=== PATIENT | male | born 1960 ===

== ENCOUNTER 2018-02-18 06:09 | Inpatient (IN) | payer OTHER ==
[2018-02-11 13:50] VITALS: BMI 23.6
[2018-02-18] MEDS ORDERED: Midazolam 2 MG/2 ML VIAL ONE ×2 (07:28→11:51)
[2018-02-18] MEDS ORDERED: Propofol 10 mg/ml Inj (20 ML) ONE ×2 (07:29→13:38)
[2018-02-18] MEDS ORDERED: Succinylcholine Chloride 20 mg/ml Syr (5 ml) IV ONE (07:31)
[2018-02-18] MEDS ORDERED: Rocuronium 10 mg/ml (5 ml) ONE (07:31)
[2018-02-18] MEDS ORDERED: cefOXitin IV 2 gm in Dextrose 2 GM/50 ML BAG IVPB ONE (07:40)
[2018-02-18] MEDS ORDERED: cefOXitin IV 1 gm in Dextrose 0 GM/0 ML BAG IVPB ONE (07:40)
[2018-02-18] MEDS ORDERED: Bupivacaine 0.25% 20 ML INJ IJ ONE (07:41)
[2018-02-18] MEDS ORDERED: Lidocaine/Epinephrine 1% 1:100000 10 ML IJ ONE (07:41)
[2018-02-18] MEDS ORDERED: HYDROmorphone 0.5 mg/0.5 ml ISec IVP PRN (13:31)
[2018-02-18] MEDS ORDERED: Lactated Ringer's 1,000 ML IV ONE ×2 (15:00)
[2018-02-18] MEDS: ceFAZolin IV 1 gm in Dextrose 1 GM/50 ML BAG IVPB SCH ×2 (16:00→23:35)
[2018-02-18] MEDS ORDERED: Tobramycin/Dexamethasone OPHT OINT OD ONE (16:15)
[2018-02-18] MEDS ORDERED: Lactated Ringer's 1,000 ML IV SCH (16:15)
[2018-02-18] MEDS: HYDROmorphone 0.5 mg/0.5 ml ISec IVP PRN ×2 (17:46→21:45)
[2018-02-18] MEDS: Lactated Ringer's 1,000 ML IV SCH (18:28)
[2018-02-19] MEDS: Lactated Ringer's 1,000 ML IV SCH ×2 (00:28→09:28)
--- NOTE | 2018-02-19 03:29 | OP ---
PROCEDURE DATE: 02/18/2018 PREOPERATIVE DIAGNOSIS: Paraesophageal hiatal hernia. POSTOPERATIVE DIAGNOSIS: Paraesophageal hiatal hernia. PROCEDURES DONE: 1. Robotic paraesophageal hiatal hernia repair with mesh. 2. Robotic fundoplication. 3. Intraoperative esophagogastroduodenoscopy. SURGEON: Manpreet Hernandez MD ASSISTANTS: Troy Pearson MD and JUVENCIO Stubbs. TYPE OF ANESTHESIA: General endotracheal tube anesthesia. ESTIMATED BLOOD LOSS: Around 50 mL. DRAINS: None. PATHOLOGY: Hernia was taken, content was sent for pathology. COMPLICATIONS: None. INTRAOPERATIVE FINDINGS: The patient had large paraesophageal hernia containing half of the stomach and omentum. The other intraoperative findings; the EGD that was done after fundoplication was suggestive of intragastric fold nearby GE junction. DESCRIPTION OF PROCEDURE: On intraoperative steps, this is a 57-year-old male, who was diagnosed with paraesophageal hernia and the patient was consented for the robotic paraesophageal hernia repair with a mesh, brought to the OR, placed supine on operating table. After induction of the anesthesia, the abdomen was prepped and draped in the usual sterile fashion. The left upper quadrant incision was made after incising the skin and subcutaneous tissue. Using the Visiport technique, peritoneal cavity was entered and pneumo was created. Another three 8-mm ports were placed in the upper abdomen. The robot was brought in. Camera arm, as well as arm 1 and arm 2 were ducked and using the fourth arm of the robot, the liver was retracted. Now, the stomach and omentum were reduced back into peritoneal cavity. The short gastric vessels were dissected initially to release fundus of the stomach from the mediastinum and now the hernia sac was dissected starting from the right side and the dissection was carried down up to the left side and the hernia sac was completely reduced. Now, the GE junction was dissected first on the left side, then on the right side up to the spine level and the posterior vagus nerve was kept intact and it was lifted up and the Ivory drain was placed and both the crural dissections were done posteriorly to prevent all the attachments of the short gastric vessels and now the mediastinal dissection was done to release all the attachments of the esophagus to the pleura up to the aorta and to the surrounding loose areolar tissue. First anterior, lateral, and posterior dissection was done with blunt and sharp dissection and approximately 4 cm of intra-abdominal esophageal length was created and now the crural repair was done posteriorly for the three stitches were placed of 0-Prolene with the pledgets of Phasix ST mesh and then one anterior suture was placed and a 56-Mongolian bougie was and bougie was taken in and out without any problems and now the EGD was also done one time just to confirm there is no injury to the esophagus, and after that the fundoplication was done. The fundus of the stomach was brought posteriorly and it was wrapped around and the anterior stitch was taken. The wrap was loose and it was able to introduce at least 2 fingerbreadths and one stitch was taken to the loose areolar tissue of the esophagus. After proper fundoplication, another EGD was done to see the intragastric nipple as well as the valve and after confirmation of an intra-gastric valve, the stomach was deflated and the Phasix ST mesh was placed and the mesh was sutured to the crura and after proper replacement of the mesh, the 19-Mongolian Levar drain was placed. The specimen was taken out and it was sent off the table for the pathology. All the ports were taken out under vision. Pneumo was deflated. The robot was undocked before taking the port out and all port sites were closed in 2 layers, the subcu with 2-0 Vicryl, skin with a 4-0 Monocryl, and dry sterile dressing was applied. The patient tolerated the procedure well. Counts of instruments and gauze were correct. There were no apparent complications. The patient was extubated in OR and sent to the postanesthesia care unit in stable condition. Manpreet Hernandez MD
[2018-02-19] MEDS: HYDROmorphone 0.5 mg/0.5 ml ISec IVP PRN ×3 (04:42→13:55)
[2018-02-19] MEDS ORDERED: HYDROmorphone 0.5 mg/0.5 ml ISec IVP STA (07:33)
[2018-02-19 07:43] LABS: HEMOGLOBIN 14.1 g/dL (12.0-18.0); MEAN CELL VOLUME 86.5 fL (80.0-94.0); MEAN CORPUSCULAR HEMOGLOBIN 29.2 pg (27.0-31.0); MEAN CORPUSCULAR HGB CONC 33.8 g/dL (33.0-37.0); MEAN PLATELET VOLUME 8.6 fL (7.2-11.7); RBC 4.82 Mil/uL (4.40-5.90); RED CELL DISTRIBUTION WIDTH 14.7 % (11.5-14.5); WHITE BLOOD COUNT 16.7 K/uL (4.8-10.8)
[2018-02-19 08:09] LABS: BLOOD UREA NITROGEN 10 mg/dL (9-20); CALCIUM 8.7 mg/dl (8.6-10.4); GFR AFRICAN-AMERICAN > 60; GFR NON-AFRICAN AMERICAN > 60
[2018-02-19] MEDS: ceFAZolin IV 1 gm in Dextrose 1 GM/50 ML BAG IVPB SCH ×2 (08:42→16:59)
[2018-02-19] MEDS: Magnesium Sulfate 1 gm in D5W 1 GM/100 ML BAG IVPB SCH ×4 (08:56→12:55)
[2018-02-19] MEDS ORDERED: Potassium Phosphate 20 MMOLE in Sodium Chloride 0.9% 250 ML IV ONE (10:00)
[2018-02-19] MEDS ORDERED: Pneumococcal 23-Valent Vaccine IM ONE (10:00)
--- NOTE | 2018-02-19 10:41 | CP.PCM.PN ---
<AndreakiahMorgan garibay - Last Filed: 02/19/18 10:36> Subjective - Date & Time of Evaluation Date of Evaluation: 02/19/18 Time of Evaluation: 10:36 - Subjective Subjective: Surgery: Dr. Hernandez Pt seen and examined. No acute events overnight. Pain is controlled. No N/V. Objective - Vital Signs/Intake and Output Vital Signs (last 24 hours): Temp Pulse Resp BP Pulse Ox 99.3 F 90 20 133/85 96 02/19/18 09:00 02/19/18 08:54 02/19/18 07:00 02/19/18 07:00 02/19/18 07:00 Intake and Output: 02/19/18 02/19/18 06:59 18:59 Intake Total 1600 Output Total 405 Balance 1195 - Medications Medications: Current Medications Heparin Sodium (Porcine) (Heparin) 5,000 units SC Q8 [facility] Last Admin: 02/19/18 09:34 Dose: 5,000 units Hydromorphone HCl (Dilaudid) 0.5 mg IVP Q3H PRN PRN Reason: Pain, severe (8-10) Cefazolin Sodium/Dextrose (Ancef Iv 1 Gm Duplex) 1 gm in 50 mls @ 100 mls/hr IVPB Q8H [facility] PRN Reason: Protocol Last Admin: 02/19/18 08:42 Dose: 100 mls/hr Potassium Phosphate 20 mmole/ (Sodium Chloride) 256.6667 mls @ 63 mls/hr IV ONCE ONE Stop: 02/19/18 14:04 Last Admin: 02/19/18 09:35 Dose: 63 mls/hr Potassium Chloride/Dextrose (Potassium Chl 20 Meq In D5w) 1,000 mls @ 100 mls/ hr IV .Q10H [facility] Metoclopramide HCl (Reglan) 10 mg IVP Q8H [facility] Last Admin: 02/19/18 05:41 Dose: 10 mg Ondansetron HCl (Zofran Inj) 4 mg IVP Q6H [facility] Last Admin: 02/19/18 07:51 Dose: 4 mg Pantoprazole Sodium (Protonix Inj) 40 mg IVP DAILY [facility] Last Admin: 02/19/18 09:29 Dose: 40 mg - Labs Labs: 02/19/18 07:37 02/19/18 07:37 - Constitutional Appears: Non-toxic, No Acute Distress - Head Exam Head Exam: ATRAUMATIC, NORMOCEPHALIC - Eye Exam Eye Exam: EOMI. absent: Scleral icterus - ENT Exam ENT Exam: Mucous Membranes Moist - Neck Exam Neck Exam: Full ROM - Respiratory Exam Respiratory Exam: NORMAL BREATHING PATTERN. absent: Accessory Muscle Use, Respiratory Distress - GI/Abdominal Exam GI & Abdominal Exam: Soft, Tenderness (mono-incisional ). absent: Distended, Firm, Guarding, Rigid, Rebound - Extremities Exam Extremities Exam: absent: Calf Tenderness, Pedal Edema - Neurological Exam Neurological Exam: Alert, Awake, Oriented x3 Assessment and Plan - Assessment and Plan (Free Text) Assessment: 57M w. hiatal hernia, s/p kaylene fundoplication, POD#1 -UGIS this AM, follow up results -keep NPO -c/w IVF and pain meds -Leukocytosis, will trend for now -GI/DVT ppx -will d/w attending Emelynitis PGY4 <Manpreet Hernandez B - Last Filed: 02/22/18 19:31> Objective - Vital Signs/Intake and Output Vital Signs (last 24 hours): Temp Pulse Resp BP Pulse Ox 98.7 F 94 H 20 131/86 95 02/22/18 15:00 02/22/18 15:00 02/22/18 15:00 02/22/18 15:00 02/22/18 15:00 Intake and Output: 02/22/18 02/23/18 18:59 06:59 Intake Total 650 Output Total 1380 Balance -730 - Medications Medications: Current Medications Acetaminophen (Tylenol 325mg Tab) 650 mg PO Q6 PRN PRN Reason: Fever >100.4 F Last Admin: 02/20/18 21:40 Dose: 650 mg Enoxaparin Sodium (Lovenox) 40 mg SC DAILY [facility] Last Admin: 02/22/18 09:48 Dose: 40 mg Piperacillin Sod/Tazobactam Sod (Zosyn 3.375 Gm Iv Premix) 3.375 gm in 50 mls @ 100 mls/hr IVPB Q8H [facility] PRN Reason: Protocol Last Admin: 02/22/18 13:38 Dose: 100 mls/hr Potassium Chloride/Dextrose (Potassium Chl 20 Meq In D5w) 1,000 mls @ 75 mls/ hr IV .[id number] [facility] Last Admin: 02/22/18 17:04 Dose: Not Given Metoclopramide HCl (Reglan) 10 mg IVP Q8H [facility] Last Admin: 02/22/18 13:38 Dose: 10 mg Morphine Sulfate (Morphine Oral Soln) 20 mg PO Q4 PRN PRN Reason: Pain, moderate (4-7) Last Admin: 02/21/18 21:27 Dose: 20 mg Ondansetron HCl (Zofran Inj) 4 mg IVP Q6H [facility] Last Admin: 02/22/18 14:50 Dose: Not Given Pantoprazole Sodium (Protonix Inj) 40 mg IVP DAILY [facility] Last Admin: 02/22/18 09:48 Dose: 40 mg Psyllium Hydrophilic Mucilloid (Hydrocil Instant) 1 pkt PO BID [facility] Last Admin: 02/22/18 17:03 Dose: Not Given Simethicone (Mylicon Chew Tab) 80 mg PO Q6H PRN PRN Reason: GI distress - Labs Labs: 02/22/18 09:30 02/22/18 09:30 Attending/Attestation - Attestation I have personally seen and examined this patient.: Yes I have fully participated in the care of the patient.: Yes I have reviewed all pertinent clinical information, including history, physical exam and plan: Yes Notes (Text): Pt was seen and examined at bedside Agree with above note and assessment Pt has atelectasis Incentive spirometry Upper GI series IV antibiotics Plan d.w pt in detail Risk and benefit explained in detail.
[2018-02-19] MEDS ORDERED: Iohexol 240 200 ML ONE (11:26)
[2018-02-19] MEDS ORDERED: Potassium Ch 20mEq in D5W 1,000 ML IV SCH (14:00)
[2018-02-19] MEDS: Potassium Ch 20mEq in D5W 1,000 ML IV SCH (14:53)
[2018-02-19] MEDS ORDERED: Morphine 10 mg/5 ml Oral Soln PO PRN (17:48)
[2018-02-20] MEDS: Potassium Ch 20mEq in D5W 1,000 ML IV SCH (06:24)
[2018-02-20] MEDS ORDERED: Simethicone 80 mg Chewtab PO PRN (07:28)
--- NOTE | 2018-02-20 07:40 | CP.PCM.PN ---
<Trent Singletary - Last Filed: 02/20/18 21:41> Subjective - Date & Time of Evaluation Date of Evaluation: 02/20/18 Time of Evaluation: 07:30 - Subjective Subjective: Patient seen and examined. No acute events over night. Patient reports abdominal incision site pain. Reports belching. Tmax 100.5 Objective - Vital Signs/Intake and Output Vital Signs (last 24 hours): Temp Pulse Resp BP Pulse Ox 99.5 F 118 H 20 136/85 93 L 02/19/18 23:18 02/19/18 23:18 02/19/18 23:18 02/19/18 23:18 02/19/18 23:18 Intake and Output: 02/20/18 02/20/18 06:59 18:59 Intake Total 800 Output Total 1610 Balance -810 - Medications Medications: Current Medications Enoxaparin Sodium (Lovenox) 40 mg SC DAILY [facility] Potassium Chloride/Dextrose (Potassium Chl 20 Meq In D5w) 1,000 mls @ 60 mls/ hr IV .[id number] [facility] Last Admin: 02/20/18 06:24 Dose: 60 mls/hr Ketorolac Tromethamine (Toradol) 30 mg IVP Q6 [facility] Stop: 02/20/18 12:01 Last Admin: 02/20/18 05:34 Dose: 30 mg Metoclopramide HCl (Reglan) 10 mg IVP Q8H [facility] Last Admin: 02/20/18 05:35 Dose: 10 mg Morphine Sulfate (Morphine Oral Soln) 20 mg PO Q4 PRN PRN Reason: Pain, moderate (4-7) Ondansetron HCl (Zofran Inj) 4 mg IVP Q6H [facility] Last Admin: 02/20/18 03:31 Dose: 4 mg Pantoprazole Sodium (Protonix Inj) 40 mg IVP DAILY [facility] Last Admin: 02/19/18 09:29 Dose: 40 mg Simethicone (Mylicon Chew Tab) 80 mg PO Q6H PRN PRN Reason: GI distress - Labs Labs: 02/19/18 07:37 02/19/18 07:37 - Constitutional Appears: No Acute Distress - Eye Exam Eye Exam: Normal appearance - ENT Exam ENT Exam: Mucous Membranes Moist - Respiratory Exam Respiratory Exam: NORMAL BREATHING PATTERN - Cardiovascular Exam Cardiovascular Exam: +S1, +S2 - GI/Abdominal Exam GI & Abdominal Exam: Tenderness. absent: Distended, Firm, Guarding, Rigid - Neurological Exam Neurological Exam: Alert, Awake, Oriented x3 - Psychiatric Exam Psychiatric exam: Normal Mood - Skin Skin Exam: Dry, Intact, Warm Assessment and Plan - Assessment and Plan (Free Text) Assessment: 57M w. hiatal hernia, s/p kaylene fundoplication, POD#2 Plan: -UGIS reviewed wit attending, ok to start CLD -Serial abd exams -Monitor bowel function -Monitor vitals -c/w anti-emetics/analgesics -Leukocytosis, will continue to trend -GI/DVT ppx -Further recs per Dr. Mary Severino PGY3 <Manpreet Hernandez - Last Filed: 02/22/18 19:40> Objective - Vital Signs/Intake and Output Vital Signs (last 24 hours): Temp Pulse Resp BP Pulse Ox 98.7 F 94 H 20 131/86 95 02/22/18 15:00 02/22/18 15:00 02/22/18 15:00 02/22/18 15:00 02/22/18 15:00 Intake and Output: 02/22/18 02/23/18 18:59 06:59 Intake Total 650 Output Total 1380 Balance -730 - Medications Medications: Current Medications Acetaminophen (Tylenol 325mg Tab) 650 mg PO Q6 PRN PRN Reason: Fever >100.4 F Last Admin: 02/20/18 21:40 Dose: 650 mg Enoxaparin Sodium (Lovenox) 40 mg SC DAILY [facility] Last Admin: 02/22/18 09:48 Dose: 40 mg Piperacillin Sod/Tazobactam Sod (Zosyn 3.375 Gm Iv Premix) 3.375 gm in 50 mls @ 100 mls/hr IVPB Q8H [facility] PRN Reason: Protocol Last Admin: 02/22/18 13:38 Dose: 100 mls/hr Potassium Chloride/Dextrose (Potassium Chl 20 Meq In D5w) 1,000 mls @ 75 mls/ hr IV .[id number] [facility] Last Admin: 02/22/18 17:04 Dose: Not Given Metoclopramide HCl (Reglan) 10 mg IVP Q8H [facility] Last Admin: 07/22/18 13:38 Dose: 10 mg Morphine Sulfate (Morphine Oral Soln) 20 mg PO Q4 PRN PRN Reason: Pain, moderate (4-7) Last Admin: 02/21/18 21:27 Dose: 20 mg Ondansetron HCl (Zofran Inj) 4 mg IVP Q6H [facility] Last Admin: 02/22/18 14:50 Dose: Not Given Pantoprazole Sodium (Protonix Inj) 40 mg IVP DAILY [facility] Last Admin: 02/22/18 09:48 Dose: 40 mg Psyllium Hydrophilic Mucilloid (Hydrocil Instant) 1 pkt PO BID [facility] Last Admin: 02/22/18 17:03 Dose: Not Given Simethicone (Mylicon Chew Tab) 80 mg PO Q6H PRN PRN Reason: GI distress - Labs Labs: 02/22/18 09:30 02/22/18 09:30 Attending/Attestation - Attestation I have personally seen and examined this patient.: Yes I have fully participated in the care of the patient.: Yes I have reviewed all pertinent clinical information, including history, physical exam and plan: Yes Notes (Text): Pt has increased WBC and atelectasis CT scan of A/P with Chest ID consult Start IV Zosyn Incentive spirometry Local wound care Plan d.w pt in detail
[2018-02-20 07:43] LABS: BLOOD UREA NITROGEN 8 mg/dL (9-20); CALCIUM 9.1 mg/dl (8.6-10.4); GFR AFRICAN-AMERICAN > 60; GFR NON-AFRICAN AMERICAN > 60
[2018-02-20 07:58] LABS: HEMOGLOBIN 14.2 g/dL (12.0-18.0); MEAN CELL VOLUME 86.6 fL (80.0-94.0); MEAN CORPUSCULAR HEMOGLOBIN 29.3 pg (27.0-31.0); MEAN CORPUSCULAR HGB CONC 33.8 g/dL (33.0-37.0); MEAN PLATELET VOLUME 9.2 fL (7.2-11.7); RBC 4.85 Mil/uL (4.40-5.90); RED CELL DISTRIBUTION WIDTH 14.6 % (11.5-14.5); WHITE BLOOD COUNT 12.8 K/uL (4.8-10.8)
[2018-02-20] MEDS: Morphine 10 mg/5 ml Oral Soln PO PRN ×2 (08:44→17:22)
--- NOTE | 2018-02-20 09:24 | RAD ---
Date of service: 02/19/2018 PROCEDURE: Limited upper GI series HISTORY: Status post Freeman fundoplication. Evaluate for leak. COMPARISON: None available. TECHNIQUE: Fluoroscopic evaluation of the esophagus and stomach was performed following administration of oral contrast. FINDINGS: Limited upper GI series demonstrated no evidence of postoperative leak. Contrast flowed freely through the esophagus, surgical site, and stomach. Incidentally noted is a small left pleural effusion. IMPRESSION: Limited upper GI series demonstrated no evidence of postoperative leak. Contrast flowed freely through the esophagus, surgical site, and stomach. Incidentally noted is a small left pleural effusion.
[2018-02-20] MEDS: Enoxaparin 40 mg Syringe SC SCH (10:53)
[2018-02-20] MEDS: Psyllium Packet PO SCH ×2 (10:53→17:16)
[2018-02-20] MEDS ORDERED: Iohexol 240 (50 ml) PO ONE (19:15)
[2018-02-20 19:35] LABS: HEMOGLOBIN 14.3 g/dL (12.0-18.0); MEAN CORPUSCULAR HEMOGLOBIN 28.4 pg (27.0-31.0); MEAN PLATELET VOLUME 8.6 fL (7.2-11.7); RBC 5.04 Mil/uL (4.40-5.90); RED CELL DISTRIBUTION WIDTH 14.6 % (11.5-14.5)
[2018-02-20 19:39] LABS: URINE BILIRUBIN NEGATIVE (NEGATIVE); URINE BLOOD 1+ (NEGATIVE); URINE CLARITY Clear (Clear); URINE COLOR Yellow (YELLOW); URINE GLUCOSE (UA) NORMAL (Normal); URINE LEUKOCYTE ESTERASE NEG Leu/uL (Negative); URINE PROTEIN 1+ mg/dL (NEGATIVE); URINE UROBILINOGEN NORMAL mg/dL (0.2-1.0)
[2018-02-20] MEDS: Piperacill/Tazo 3.375gm in Dex 3.375 GM/50 ML BAG IVPB SCH (20:31)
[2018-02-20] MEDS ORDERED: Iohexol 300 100 ML IJ ONE (20:32)
[2018-02-20 21:14] LABS: BLOOD UREA NITROGEN 5 mg/dL (9-20); CALCIUM 9.2 mg/dl (8.6-10.4); GFR AFRICAN-AMERICAN > 60; GFR NON-AFRICAN AMERICAN > 60
--- NOTE | 2018-02-20 22:07 | CP.PCM.CON ---
History of Present Illness - History of Present Illness History of Present Illness: INFECTIOUS DISEASE CONSULT; HPI; 57M w.HX OF GERD and HIATAL HERNIA s/p freeman fundoplication,ON 02/18/18- POD#2. POST-OPERATIVELY THE PATIENT DID WELL BUT HE SPIKED A FEVER OF 102.7 THIS AFTERNOON. PATIENT ALSO WAS FOUND TO HAVE SOME SEROUS SANGUINOUS DRAINAGE POSTOPERATIVE SITE AND IN Lesly-FREDERICK. UGI- SERIES DID NOT SHOW A LEAK. INFECTIOUS DISEASE CONSULT REQUESTED BY PMD DR WU. PATIENT COMPLAINS OF SOME POSTOPERATIVE SITE PAIN. DENIES NAUSEA VOMITING. PATIENT DENIES ANY SHORTNESS OF BREATH, COUGH, CHEST PAIN, PALPITATIONS. PATIENT ALSO DENIES ANY DYSURIA OR HEMATURIA. PMH: hiatal hernia (dx recently), GERD. DENIES HISTORY OF DIABETES MELLITUS, HYPERTENSION, HEART DISEASE, ASTHMA OR SEIZURE DISORDER. PSH: Denies All: NKDA SH: Admits to ETOH use on weekends occasionally, denies tobacco or illicit drug use FH: Non contributory PMD: [facility] Review of Systems - Constitutional Constitutional: Chills, Fever - EENT Eyes: absent: Photophobia, Other Visual Disturbances Nose/Mouth/Throat: absent: Mouth Lesions - Cardiovascular Cardiovascular: absent: Chest Pain, Dyspnea - Respiratory Respiratory: absent: Cough, Hemoptysis - Gastrointestinal Gastrointestinal: Abdominal Pain (POST OPTIVE +VE J-FREDERICK SS DRAINAGE + POST OPERATIVE SITE DRESSING SLIGHTLY WET.), Loose Stools (X2) - Genitourinary Genitourinary: absent: Freq UTI - Musculoskeletal Musculoskeletal: As Per HPI - Neurological Neurological: absent: Dizziness, Headaches - Hematologic/Lymphatic Hematologic: As Per HPI. absent: Easy Bleeding, Easy Bruising, Lymphadenopathy Past Patient History - Past Medical History & Family History Past Medical History?: Yes - Past Social History Smoking Status: Never Smoked - CARDIAC Hx Cardiac Disorders: No - PULMONARY Hx Respiratory Disorders: No - NEUROLOGICAL Hx Neurological Disorder: No - HEENT Hx HEENT Problems: No - RENAL Hx Chronic Kidney Disease: No - ENDOCRINE/METABOLIC Hx Endocrine Disorders: No - HEMATOLOGICAL/ONCOLOGICAL Hx Blood Disorders: No Hx Blood Transfusions: No Hx Blood Transfusion Reaction: No - INTEGUMENTARY Hx Dermatological Problems: No - MUSCULOSKELETAL/RHEUMATOLOGICAL Hx Musculoskeletal Disorders: No Hx Falls: No - GASTROINTESTINAL Hx Gastrointestinal Disorders: Yes Hx Gall Bladder Disease: Yes Hx Gastritis: Yes Other/Comment: HIATAL HERNIA - GENITOURINARY/GYNECOLOGICAL Hx Genitourinary Disorders: No - PSYCHIATRIC Hx Psychophysiologic Disorder: No Hx Substance Use: No - SURGICAL HISTORY Hx Surgeries: Yes Hx Tonsillectomy: Yes (CHILDHOOD) - ANESTHESIA Hx Anesthesia: Yes Hx Anesthesia Reactions: No Hx Malignant Hyperthermia: No Has any member of the family had a problem w/ anesthesia?: No (UNKNOWN) Meds Allergies/Adverse Reactions: Allergies Allergy/AdvReac Type Severity Reaction Status Date / Time No Known Allergies Allergy Verified 01/07/18 20:12 - Medications Medications: Current Medications Acetaminophen (Tylenol 325mg Tab) 650 mg PO Q6 PRN PRN Reason: Fever >100.4 F Last Admin: 02/20/18 21:40 Dose: 650 mg Enoxaparin Sodium (Lovenox) 40 mg SC DAILY [facility] Last Admin: 02/20/18 10:53 Dose: 40 mg Potassium Chloride/Dextrose (Potassium Chl 20 Meq In D5w) 1,000 mls @ 60 mls/ hr IV .[id number] [facility] Last Admin: 02/20/18 06:24 Dose: 60 mls/hr Piperacillin Sod/Tazobactam Sod (Zosyn 3.375 Gm Iv Premix) 3.375 gm in 50 mls @ 100 mls/hr IVPB Q8H [facility] PRN Reason: Protocol Last Admin: 02/20/18 20:31 Dose: 100 mls/hr Metoclopramide HCl (Reglan) 10 mg IVP Q8H [facility] Last Admin: 02/20/18 14:37 Dose: 10 mg Morphine Sulfate (Morphine Oral Soln) 20 mg PO Q4 PRN PRN Reason: Pain, moderate (4-7) Last Admin: 02/20/18 17:22 Dose: 20 mg Ondansetron HCl (Zofran Inj) 4 mg IVP Q6H [facility] Last Admin: 02/20/18 20:31 Dose: 4 mg Pantoprazole Sodium (Protonix Inj) 40 mg IVP DAILY [facility] Last Admin: 02/20/18 10:53 Dose: 40 mg Psyllium Hydrophilic Mucilloid (Hydrocil Instant) 1 pkt PO BID [facility] Last Admin: 02/20/18 17:16 Dose: 1 pkt Simethicone (Mylicon Chew Tab) 80 mg PO Q6H PRN PRN Reason: GI distress Physical Exam - Constitutional Appears: No Acute Distress - Head Exam Head Exam: NORMAL INSPECTION - Eye Exam Eye Exam: EOMI, PERRL - ENT Exam ENT Exam: Normal Oropharynx - Neck Exam Neck exam: Positive for: Normal Inspection - Respiratory Exam Respiratory Exam: Clear to Auscultation Bilateral, NORMAL BREATHING PATTERN - Cardiovascular Exam Cardiovascular Exam: Tachycardia, REGULAR RHYTHM, +S1, +S2 - GI/Abdominal Exam GI & Abdominal Exam: Hypoactive Bowel Sounds, Soft, Tenderness (POST.OPTIVE SITE. +VE J FREDERICK DRAINING SS FLUID) - Extremities Exam Extremities exam: Negative for: calf tenderness - Back Exam Back exam: absent: CVA tenderness (L), CVA tenderness (R) - Neurological Exam Neurological exam: Alert, CN II-XII Intact, Oriented x3 - Psychiatric Exam Psychiatric exam: Normal Mood - Skin Skin Exam: Normal Color, Warm Results - Vital Signs Recent Vital Signs: Last Vital Signs Temp 102 F H 02/20/18 21:40 Pulse 103 H 02/20/18 16:00 Resp 18 02/20/18 16:00 BP 135/89 02/20/18 16:00 Pulse Ox 93 L 02/20/18 16:00 - Labs Result Diagrams: 02/20/18 19:32 02/20/18 20:42 Labs: Laboratory Results - last 24 hr 02/20/18 02/20/18 02/20/18 07:08 07:08 19:32 WBC 12.8 H 14.0 H RBC 4.85 5.04 Hgb 14.2 14.3 Hct 42.0 43.3 MCV 86.6 86.0 MCH 29.3 28.4 MCHC 33.8 33.0 RDW 14.6 H 14.6 H Plt Count 139 151 MPV 9.2 8.6 Sodium 133 Potassium 3.9 Chloride 99 Carbon Dioxide 28 Anion Gap 11 BUN 8 L Creatinine 0.9 Est GFR ( Amer) > 60 Est GFR (Non-Af Amer) > 60 Random Glucose 169 H Lactic Acid Calcium 9.1 Phosphorus 1.6 L Magnesium 2.1 Urine Color Urine Clarity Urine pH Ur Specific Percival Urine Protein Urine Glucose (UA) Urine Ketones Urine Blood Urine Nitrate Urine Bilirubin Urine Urobilinogen Ur Leukocyte Esterase Urine WBC (Auto) Urine RBC (Auto) 02/20/18 02/20/18 02/20/18 19:32 19:32 20:42 WBC RBC Hgb Hct MCV MCH MCHC RDW Plt Count MPV Sodium 134 Potassium 4.3 Chloride 98 Carbon Dioxide 29 Anion Gap 12 BUN 5 L Creatinine 1.0 Est GFR ( Amer) > 60 Est GFR (Non-Af Amer) > 60 Random Glucose 145 H Lactic Acid 1.2 Calcium 9.2 Phosphorus Magnesium Urine Color Yellow Urine Clarity Clear Urine pH 7.0 Ur Specific Percival 1.008 Urine Protein 1+ H Urine Glucose (UA) Normal Urine Ketones Negative Urine Blood 1+ H Urine Nitrate Negative Urine Bilirubin Negative Urine Urobilinogen Normal Ur Leukocyte Esterase Neg Urine WBC (Auto) 1 Urine RBC (Auto) 1 Assessment & Plan (1) Fever Assessment and Plan: PANCULTURE. U/A URINE CULTURE ABDOMINAL FLUID CULTURE (RACHEL ) START IV ZOSYN 3.375 EVERY 8 HOURLY DISCUSSED WITH RESIDENT.02/20/18 GENTAMICIN 160 MG iv PIGGYBACK XI DOSE.02/21/[address] OF THE CHEST /ABDOMEN AND PELVIS WITH BY MOUTH AND iv CONTRAST ORDERED BY SURGICAL TEAM. WILL FOLLOW ALONG WITH YOU. CASE DISCUSSED WITH THE RESIDENT/STAFF.. Status: Acute (2) Leukocytosis Assessment and Plan: FOLLOW-UP BLOOD CULTURES/AND URINE CULTURES. CONTINUE iv ANTIBIOTICS ORDERED. F/U CBC WITH DIFFERENTIAL, BMP, LFTS IN AM . fOLLOW-UP CT OF THE CHEST,ABDOMEN, AND PELVIS WITH PO/AND iv CONTRAST-PENDING. Status: Acute (3) Status post Freeman fundoplication Assessment and Plan: S/P ZULEMA -FUNDOPLICATION 02/18/18 FOR HIATAL HERNIA. Status: Acute
[2018-02-20 22:33] VITALS: RESP 20
[2018-02-21] MEDS: Potassium Ch 20mEq in D5W 1,000 ML IV SCH ×2 (00:35→14:12)
[2018-02-21] MEDS ORDERED: Gentamicin 160 MG in Sodium Chloride 0.9% 100 ML IVPB ONE (01:00)
[2018-02-21] MEDS: Piperacill/Tazo 3.375gm in Dex 3.375 GM/50 ML BAG IVPB SCH ×3 (04:05→21:27)
[2018-02-21] MEDS ORDERED: Potassium Ch 20mEq in D5W 1,000 ML IV SCH (06:02)
--- NOTE | 2018-02-21 08:16 | CP.PCM.PN ---
<Morgan Hernandez - Last Filed: 02/21/18 08:20> Subjective - Date & Time of Evaluation Date of Evaluation: 02/21/18 Time of Evaluation: 08:15 - Subjective Subjective: Surgery: Dr. Hernandez Pt seen and examined. Became febrile last night 102.7. Pt was caldera scanned and cultured. CT showed B/L pleural effusions, small R PTX, and post-operative changes. Pt states that he feels better this morning. No complaints of SOB. No N /V. H is passing flatus and having BM. Objective - Vital Signs/Intake and Output Vital Signs (last 24 hours): Temp Pulse Resp BP Pulse Ox 98.5 F 72 20 132/85 95 02/21/18 07:22 02/21/18 07:22 02/21/18 07:22 02/21/18 07:22 02/21/18 07:22 Intake and Output: 02/21/18 02/21/18 06:59 18:59 Intake Total 1160 Output Total 1355 Balance -195 - Medications Medications: Current Medications Acetaminophen (Tylenol 325mg Tab) 650 mg PO Q6 PRN PRN Reason: Fever >100.4 F Last Admin: 02/20/18 21:40 Dose: 650 mg Enoxaparin Sodium (Lovenox) 40 mg SC DAILY [facility] Last Admin: 02/20/18 10:53 Dose: 40 mg Piperacillin Sod/Tazobactam Sod (Zosyn 3.375 Gm Iv Premix) 3.375 gm in 50 mls @ 100 mls/hr IVPB Q8H [facility] PRN Reason: Protocol Last Admin: 02/21/18 04:05 Dose: 100 mls/hr Potassium Chloride/Dextrose (Potassium Chl 20 Meq In D5w) 1,000 mls @ 100 mls/ hr IV .Q10H [facility] Last Admin: 02/21/18 07:31 Dose: 100 mls/hr Metoclopramide HCl (Reglan) 10 mg IVP Q8H [facility] Last Admin: 02/21/18 05:45 Dose: 10 mg Morphine Sulfate (Morphine Oral Soln) 20 mg PO Q4 PRN PRN Reason: Pain, moderate (4-7) Last Admin: 02/20/18 17:22 Dose: 20 mg Ondansetron HCl (Zofran Inj) 4 mg IVP Q6H [facility] Last Admin: 02/21/18 02:30 Dose: 4 mg Pantoprazole Sodium (Protonix Inj) 40 mg IVP DAILY [facility] Last Admin: 02/20/18 10:53 Dose: 40 mg Psyllium Hydrophilic Mucilloid (Hydrocil Instant) 1 pkt PO BID [facility] Last Admin: 02/20/18 17:16 Dose: 1 pkt Simethicone (Mylicon Chew Tab) 80 mg PO Q6H PRN PRN Reason: GI distress - Labs Labs: 02/20/18 19:32 02/20/18 20:42 - Constitutional Appears: Non-toxic, No Acute Distress - Head Exam Head Exam: ATRAUMATIC, NORMOCEPHALIC - Eye Exam Eye Exam: EOMI - ENT Exam ENT Exam: Mucous Membranes Moist - Neck Exam Neck Exam: Full ROM - Respiratory Exam Respiratory Exam: NORMAL BREATHING PATTERN. absent: Accessory Muscle Use, Respiratory Distress - Cardiovascular Exam Cardiovascular Exam: REGULAR RHYTHM - GI/Abdominal Exam GI & Abdominal Exam: Soft, Tenderness (per-incisional ). absent: Distended, Firm, Guarding, Rigid, Rebound Additional comments: levar in place - Extremities Exam Extremities Exam: absent: Calf Tenderness, Pedal Edema - Neurological Exam Neurological Exam: Alert, Awake, Oriented x3 - Skin Skin Exam: Dry, Warm Assessment and Plan - Assessment and Plan (Free Text) Assessment: 57M w. hiatal hernia, s/p kaylene fundoplication, POD#3 -f/u cultures -abx per ID -keep npo -Levar: 15cc/12hr serosang -monitor drain outputs -Trend wbc -d/w attending Zemaitis PGY4 <Manpreet Hernandez B - Last Filed: 02/22/18 19:43> Objective - Vital Signs/Intake and Output Vital Signs (last 24 hours): Temp Pulse Resp BP Pulse Ox 98.7 F 94 H 20 131/86 95 02/22/18 15:00 02/22/18 15:00 02/22/18 15:00 02/22/18 15:00 02/22/18 15:00 Intake and Output: 02/22/18 02/23/18 18:59 06:59 Intake Total 650 Output Total 1380 Balance -730 - Medications Medications: Current Medications Acetaminophen (Tylenol 325mg Tab) 650 mg PO Q6 PRN PRN Reason: Fever >100.4 F Last Admin: 02/20/18 21:40 Dose: 650 mg Enoxaparin Sodium (Lovenox) 40 mg SC DAILY [facility] Last Admin: 02/22/18 09:48 Dose: 40 mg Piperacillin Sod/Tazobactam Sod (Zosyn 3.375 Gm Iv Premix) 3.375 gm in 50 mls @ 100 mls/hr IVPB Q8H [facility] PRN Reason: Protocol Last Admin: 02/22/18 13:38 Dose: 100 mls/hr Potassium Chloride/Dextrose (Potassium Chl 20 Meq In D5w) 1,000 mls @ 75 mls/ hr IV .[id number] [facility] Last Admin: 02/22/18 17:04 Dose: Not Given Metoclopramide HCl (Reglan) 10 mg IVP Q8H [facility] Last Admin: 02/22/18 13:38 Dose: 10 mg Morphine Sulfate (Morphine Oral Soln) 20 mg PO Q4 PRN PRN Reason: Pain, moderate (4-7) Last Admin: 02/21/18 21:27 Dose: 20 mg Ondansetron HCl (Zofran Inj) 4 mg IVP Q6H [facility] Last Admin: 02/22/18 14:50 Dose: Not Given Pantoprazole Sodium (Protonix Inj) 40 mg IVP DAILY [facility] Last Admin: 02/22/18 09:48 Dose: 40 mg Psyllium Hydrophilic Mucilloid (Hydrocil Instant) 1 pkt PO BID [facility] Last Admin: 02/22/18 17:03 Dose: Not Given Simethicone (Mylicon Chew Tab) 80 mg PO Q6H PRN PRN Reason: GI distress - Labs Labs: 02/22/18 09:30 02/22/18 09:30 Attending/Attestation - Attestation I have fully participated in the care of the patient.: Yes I have reviewed all pertinent clinical information, including history, physical exam and plan: Yes Notes (Text): Pt is improving ID Consult appreciated C/w IV antibiotics Local wound care Full liquid diet Plan d.w pt in detail
[2018-02-21 08:17] LABS: HEMOGLOBIN 13.6 g/dL (12.0-18.0); MEAN CELL VOLUME 86.8 fL (80.0-94.0); MEAN CORPUSCULAR HEMOGLOBIN 29.2 pg (27.0-31.0); MEAN CORPUSCULAR HGB CONC 33.6 g/dL (33.0-37.0); MEAN PLATELET VOLUME 9.1 fL (7.2-11.7); RBC 4.65 Mil/uL (4.40-5.90); RED CELL DISTRIBUTION WIDTH 14.6 % (11.5-14.5); WHITE BLOOD COUNT 10.7 K/uL (4.8-10.8)
--- NOTE | 2018-02-21 08:43 | RAD ---
Date of service: 02/20/2018 HISTORY: r/o pneumonia COMPARISON: No prior. TECHNIQUE: Chest PA and lateral FINDINGS: LUNGS: Medial bibasilar infiltrates are identified. PLEURA: No significant pleural effusion identified. No pneumothorax apparent. CARDIOVASCULAR: Normal. OSSEOUS STRUCTURES: No significant abnormalities. VISUALIZED UPPER ABDOMEN: Normal. OTHER FINDINGS: None. IMPRESSION: Medial bibasilar infiltrates.
[2018-02-21 08:52] LABS: BLOOD UREA NITROGEN 7 mg/dL (9-20); CALCIUM 8.9 mg/dl (8.6-10.4); GFR AFRICAN-AMERICAN > 60; GFR NON-AFRICAN AMERICAN > 60
[2018-02-21] MEDS: Enoxaparin 40 mg Syringe SC SCH (09:09)
[2018-02-21] MEDS: Psyllium Packet PO SCH ×2 (09:12→17:24)
--- NOTE | 2018-02-21 11:49 | CT ---
Date of service: 02/20/2018 PROCEDURE: CT Chest, Abdomen and Pelvis with intravenous contrast HISTORY: r/o post-op collection/leak COMPARISON: Limited upper GI series 19334. TECHNIQUE: Helical CT of the chest, abdomen and pelvis was performed following oral and intravenous contrast administration. Reformatted datasets provided sagittal axial and coronal planes. IV dose administered: Omnipaque 300, 100 cc Radiation dose: Total exam DLP = 488.09 mGy-cm. This CT exam was performed using one or more of the following dose reduction techniques: Automated exposure control, adjustment of the mA and/or kV according to patient size, and/or use of iterative reconstruction technique. FINDINGS: CT CHEST WITH CONTRAST: LUNGS: [id number] bilateral basilar and dependent compression atelectasis identified related to pleural effusions. Central airways appear clear. MEDIASTINUM: Trace emphysema is seen in the chest wall anteriorly including at the thoracic inlet in this bilateral chest wall flanks in addition. No mediastinal emphysema is appreciated this time with the chest wall findings. Trace gas is seen in the distal esophagus as well as minimal retained oral contrast material. The distal esophagus is narrowed status post recent may reflect limited hematoma or edema. Mildly hyperdense material surrounds the distal esophageal fundoplication. A filling defect continues to level of the cardiac portion of the stomach reflecting the fundoplication as well. There is no extravasation of oral contrast material with the stomach well distended with oral contrast at this time fundoplication. Cardiac size is normal as well as the caliber of the thoracic aorta and main pulmonary artery. No significant lymphadenopathy at this time. LYMPH NODES: Unremarkable. PLEURA: A minimal right apical pneumothorax identified with no left pneumothorax. Mild bilateral pleural effusions are identified. No pericardial effusion. BONES: Unremarkable. OTHER FINDINGS: None. CT ABDOMEN AND PELVIS: LIVER: Unremarkable. No gross lesion or ductal dilatation. GALLBLADDER AND BILE DUCTS: Unremarkable. PANCREAS: Unremarkable. No gross lesion or ductal dilatation. SPLEEN: Unremarkable. ADRENALS: Unremarkable. No mass. KIDNEYS AND URETERS: Unremarkable. No hydronephrosis. No solid mass. VASCULATURE: Unremarkable. No aortic aneurysm. BOWEL: Does not appear obstructed. Please see fundoplication defect and gastric cardia described in mediastinum discussion above. APPENDIX: Normal appendix. PERITONEUM: The surgical drains identified in place within the upper to mid abdominal perineum but no ascites identified grossly. No free intra peritoneal gas. LYMPH NODES: Unremarkable. No enlarged lymph nodes. BLADDER: Urinary bladder is distended with trace gas than lumen which may reflect recent instrumentation. Clinically correlate. REPRODUCTIVE: Unremarkable. BONES: No acute fracture. OTHER FINDINGS: Trace gas noted at the left inguinal canal there is a minimal fat containing hernia. IMPRESSION: 1. Status post fundoplication distal esophagus with the lumen narrowed but patent as oral contrast is seen distending the stomach. Intermediate density material surrounding the level of fundoplication at the lower mediastinum/esophageal hiatus region may reflect postoperative subacute or even early chronic hematoma though a complex seroma is a possibility as well. Clinically correlate further. No extravasated oral contrast material is appreciated in the mediastinum or the upper abdomen. 2. Nonspecific chest wall emphysematous changes appear limited. No mediastinal emphysema. 3. A small right apical pneumothorax. 4. Mild bilateral pleural effusions exerts compression atelectasis of the bilateral lower lobes. 5. No definite acute abdominal findings as discussed above. 6. Trace gas within a tiny left inguinal hernia. Gas is seen in the urinary bladder lumen mildly, potentially status post recent instrumentation. Clinically correlate. Concordant preliminary report from [facility], 02/20/2018.
[2018-02-21] MEDS: Morphine 10 mg/5 ml Oral Soln PO PRN ×2 (12:24→21:27)
--- NOTE | 2018-02-21 14:55 | CP.PCM.PN ---
Subjective - Date & Time of Evaluation Date of Evaluation: 02/21/18 Time of Evaluation: 14:55 - Subjective Subjective: CHIEF COMPLAINTS TODAY : TMAX 102.7, NOW AFEBRILE feeling better. Slight perioperatively wounds pain +NICOLLE SS DRAINAGE ROS. HEENT : N. Resp : No cough, wheezing ,pleuritic CP ,or hemoptysis Cardio : No anginal CP, PND, orthopnea, palpitation GI : POST OPERATIVE abd.pain, n/v ,diarrhea or GI bleeding . 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 Musculoskel : No joint swelling , Derm : No rash Psych : Normal affect. Ext : No swelling ,calf pain PE. Pt. is alert awake in no distress. V.S As noted in the chart Head ,ear nose,throat and eyes : Normal. Neck : Supple with normal carotids. Lungs: Clear air entry. Heart : S1 & S2 normal with S4. No murmur. Abd : SOFT .MILD PERIINCISIONAL PAIN , with normal bowel sounds. +J.FREDERICK SSDRAINAGE Neuro : Moves all ext. with no localized deficit. Ext : No edema with intact pulses.Non tender calves Derm : No rashes or decubitus ulcer. LABS/RADIOLOGY: BLOOD CULTURES-VE 24 HOURS .wbcS 10.7 IMPROVING H/H STABLE 13.6. CREATININE 1.0 / bun 7 CT CHEST/ABDOMEN AND PELVIS WITH BY MOUTH AND iv CONTRAST-NOTED. small right apical pneumothorax,NO ACUTE ABDOMINAL FINDINGS, POSTOPERATIVE CHANGES. ASSESSMENT/PLAN : Objective - Vital Signs/Intake and Output Vital Signs (last 24 hours): Temp Pulse Resp BP Pulse Ox 98.5 F 72 20 132/85 95 02/21/18 07:22 02/21/18 07:22 02/21/18 07:22 02/21/18 07:22 02/21/18 07:22 Intake and Output: 02/21/18 02/21/18 06:59 18:59 Intake Total 1160 1150 Output Total 1355 555 Balance -195 595 - Medications Medications: Current Medications Acetaminophen (Tylenol 325mg Tab) 650 mg PO Q6 PRN PRN Reason: Fever >100.4 F Last Admin: 02/20/18 21:40 Dose: 650 mg Enoxaparin Sodium (Lovenox) 40 mg SC DAILY [facility] Last Admin: 02/21/18 09:09 Dose: 40 mg Piperacillin Sod/Tazobactam Sod (Zosyn 3.375 Gm Iv Premix) 3.375 gm in 50 mls @ 100 mls/hr IVPB Q8H [facility] PRN Reason: Protocol Last Admin: 02/21/18 12:26 Dose: 100 mls/hr Potassium Chloride/Dextrose (Potassium Chl 20 Meq In D5w) 1,000 mls @ 75 mls/ hr IV .[id number] [facility] Last Admin: 02/21/18 14:12 Dose: 75 mls/hr Metoclopramide HCl (Reglan) 10 mg IVP Q8H [facility] [place] Last Admin: 02/21/18 14:09 Dose: 10 mg Morphine Sulfate (Morphine Oral Soln) 20 mg PO Q4 PRN PRN Reason: Pain, moderate (4-7) Last Admin: 02/21/18 12:24 Dose: 20 mg Ondansetron HCl (Zofran Inj) 4 mg IVP Q6H [facility] [place] Last Admin: 02/21/18 14:09 Dose: 4 mg Pantoprazole Sodium (Protonix Inj) 40 mg IVP DAILY [facility] [place] Last Admin: 02/21/18 09:09 Dose: 40 mg Psyllium Hydrophilic Mucilloid (Hydrocil Instant) 1 pkt PO BID [facility] [place] Last Admin: 02/21/18 09:12 Dose: Not Given Simethicone (Mylicon Chew Tab) 80 mg PO Q6H PRN PRN Reason: GI distress - Labs Labs: 02/21/18 08:02 02/21/18 08:02 Assessment and Plan (1) Fever Assessment & Plan: BLOOD CULTURES 2 SETS-VE X 24 HOURS. ABDOMINAL FLUID CULTURE (RACHEL )-P CONTINUE IV ZOSYN 3.375 EVERY 8 HOURLY DISCUSSED WITH RESIDENT.02/20/18 GENTAMICIN 160 MG iv PIGGYBACK XI DOSE.02/21/18 Status: Acute (2) Leukocytosis Assessment & Plan: IMPROVING. oN iv ANTIBIOTICS. CXR 02/20/18 MEDIAL BIBASILAR INFILTRATES. Status: Acute (3) Status post Freeman fundoplication Assessment & Plan: POST OP . DAY 3. Status: Acute
[2018-02-22] MEDS: Potassium Ch 20mEq in D5W 1,000 ML IV SCH ×3 (02:42→17:04)
[2018-02-22] MEDS: Piperacill/Tazo 3.375gm in Dex 3.375 GM/50 ML BAG IVPB SCH ×3 (04:02→21:17)
--- NOTE | 2018-02-22 07:49 | CP.PCM.PN ---
<Ramiro Nicolas - Last Filed: 02/22/18 10:04> Subjective - Date & Time of Evaluation Date of Evaluation: 02/22/18 Time of Evaluation: 07:46 - Subjective Subjective: General Surgery Progress Note for Dr. Hernandez 57M seen and evaluated at bedside this morning. No acute events overnight. Pt states that he feels better this morning w/ some pain at incisional sites. No complaints of SOB. No N/V, f/c. He is passing flatus and having BM. Objective - Vital Signs/Intake and Output Vital Signs (last 24 hours): Temp Pulse Resp BP Pulse Ox 98.0 F 80 20 127/77 95 02/22/18 07:00 02/22/18 07:00 02/22/18 07:00 02/22/18 07:00 02/22/18 07:00 - Medications Medications: Current Medications Acetaminophen (Tylenol 325mg Tab) 650 mg PO Q6 PRN PRN Reason: Fever >100.4 F Last Admin: 02/20/18 21:40 Dose: 650 mg Enoxaparin Sodium (Lovenox) 40 mg SC DAILY [facility] Last Admin: 02/21/18 09:09 Dose: 40 mg Piperacillin Sod/Tazobactam Sod (Zosyn 3.375 Gm Iv Premix) 3.375 gm in 50 mls @ 100 mls/hr IVPB Q8H [facility] PRN Reason: Protocol Last Admin: 02/22/18 04:02 Dose: 100 mls/hr Potassium Chloride/Dextrose (Potassium Chl 20 Meq In D5w) 1,000 mls @ 75 mls/ hr IV .[id number] [facility] Last Admin: 02/22/18 02:42 Dose: Not Given Metoclopramide HCl (Reglan) 10 mg IVP Q8H [facility] Last Admin: 02/22/18 06:21 Dose: 10 mg Morphine Sulfate (Morphine Oral Soln) 20 mg PO Q4 PRN PRN Reason: Pain, moderate (4-7) Last Admin: 02/21/18 21:27 Dose: 20 mg Ondansetron HCl (Zofran Inj) 4 mg IVP Q6H [facility] Last Admin: 02/22/18 02:34 Dose: 4 mg Pantoprazole Sodium (Protonix Inj) 40 mg IVP DAILY [facility] Last Admin: 02/21/18 09:09 Dose: 40 mg Psyllium Hydrophilic Mucilloid (Hydrocil Instant) 1 pkt PO BID [facility] Last Admin: 02/21/18 17:24 Dose: Not Given Simethicone (Mylicon Chew Tab) 80 mg PO Q6H PRN PRN Reason: GI distress - Labs Labs: 02/21/18 08:02 02/21/18 08:02 - Constitutional Appears: Well, Non-toxic, No Acute Distress - Head Exam Head Exam: ATRAUMATIC, NORMAL INSPECTION, NORMOCEPHALIC - Eye Exam Eye Exam: EOMI, Normal appearance - Respiratory Exam Respiratory Exam: Clear to Ausculation Bilateral, NORMAL BREATHING PATTERN - Cardiovascular Exam Cardiovascular Exam: REGULAR RHYTHM, +S1, +S2. absent: Murmur - GI/Abdominal Exam GI & Abdominal Exam: Soft, Tenderness, Normal Bowel Sounds. absent: Distended Additional comments: Levar drain - 2cc serosanguinous output - Neurological Exam Neurological Exam: Alert, Awake, Oriented x3 - Psychiatric Exam Psychiatric exam: Normal Affect, Normal Mood - Skin Skin Exam: Dry, Intact, Normal Color, Warm Assessment and Plan - Assessment and Plan (Free Text) Assessment: 57M s/p hiatal hernia repair POD4 Plan: advance diet to liquids monitor AM labs, urine output, drain output titrate down IVF c/w pain management c/w IV Abx per ID recs f/u caldera cultures encourage ambulation and IS use further recs per Dr. Mary Nicolas PGY1 <Manpreet Hernandez B - Last Filed: 02/22/18 19:44> Objective - Vital Signs/Intake and Output Vital Signs (last 24 hours): Temp Pulse Resp BP Pulse Ox 98.7 F 94 H 20 131/86 95 02/22/18 15:00 02/22/18 15:00 02/22/18 15:00 02/22/18 15:00 02/22/18 15:00 Intake and Output: 02/22/18 02/23/18 18:59 06:59 Intake Total 650 Output Total 1380 Balance -730 - Medications Medications: Current Medications Acetaminophen (Tylenol 325mg Tab) 650 mg PO Q6 PRN PRN Reason: Fever >100.4 F Last Admin: 02/20/18 21:40 Dose: 650 mg Enoxaparin Sodium (Lovenox) 40 mg SC DAILY [facility] Last Admin: 02/22/18 09:48 Dose: 40 mg Piperacillin Sod/Tazobactam Sod (Zosyn 3.375 Gm Iv Premix) 3.375 gm in 50 mls @ 100 mls/hr IVPB Q8H [facility] PRN Reason: Protocol Last Admin: 02/22/18 13:38 Dose: 100 mls/hr Potassium Chloride/Dextrose (Potassium Chl 20 Meq In D5w) 1,000 mls @ 75 mls/ hr IV .[id number] [facility] Last Admin: 02/22/18 17:04 Dose: Not Given Metoclopramide HCl (Reglan) 10 mg IVP Q8H [facility] Last Admin: 02/22/18 13:38 Dose: 10 mg Morphine Sulfate (Morphine Oral Soln) 20 mg PO Q4 PRN PRN Reason: Pain, moderate (4-7) Last Admin: 02/21/18 21:27 Dose: 20 mg Ondansetron HCl (Zofran Inj) 4 mg IVP Q6H [facility] Last Admin: 02/22/18 14:50 Dose: Not Given Pantoprazole Sodium (Protonix Inj) 40 mg IVP DAILY [facility] Last Admin: 02/22/18 09:48 Dose: 40 mg Psyllium Hydrophilic Mucilloid (Hydrocil Instant) 1 pkt PO BID [facility] Last Admin: 02/22/18 17:03 Dose: Not Given Simethicone (Mylicon Chew Tab) 80 mg PO Q6H PRN PRN Reason: GI distress - Labs Labs: 02/22/18 09:30 02/22/18 09:30 Attending/Attestation - Attestation I have fully participated in the care of the patient.: Yes I have reviewed all pertinent clinical information, including history, physical exam and plan: Yes Notes (Text): Pt is afebrile Tolerating liquid diet C/w IV antibiotics Advance diet as tolerated DC plan Plan d.w pt in detail
[2018-02-22 09:40] LABS: HEMOGLOBIN 13.9 g/dL (12.0-18.0); MEAN CORPUSCULAR HEMOGLOBIN 29.3 pg (27.0-31.0); MEAN CORPUSCULAR HGB CONC 33.7 g/dL (33.0-37.0); MEAN PLATELET VOLUME 8.4 fL (7.2-11.7); RBC 4.76 Mil/uL (4.40-5.90); RED CELL DISTRIBUTION WIDTH 14.7 % (11.5-14.5); WHITE BLOOD COUNT 8.7 K/uL (4.8-10.8)
[2018-02-22] MEDS: Psyllium Packet PO SCH ×2 (09:48→17:03)
[2018-02-22] MEDS: Enoxaparin 40 mg Syringe SC SCH (09:48)
[2018-02-22 09:50] LABS: BLOOD UREA NITROGEN 10 mg/dL (9-20); CALCIUM 9.5 mg/dl (8.6-10.4); GFR AFRICAN-AMERICAN > 60; GFR NON-AFRICAN AMERICAN > 60
[2018-02-23] MEDS: Potassium Ch 20mEq in D5W 1,000 ML IV SCH (02:24)
[2018-02-23] MEDS ORDERED: Potassium Ch 20mEq in D5W 1,000 ML IV SCH (04:14)
[2018-02-23] MEDS: Piperacill/Tazo 3.375gm in Dex 3.375 GM/50 ML BAG IVPB SCH ×2 (05:16→13:31)
[2018-02-23] MEDS: Psyllium Packet PO SCH (09:05)
[2018-02-23] MEDS: Enoxaparin 40 mg Syringe SC SCH (09:05)
--- NOTE | 2018-02-23 13:51 | CP.PCM.PN ---
Subjective - Date & Time of Evaluation Date of Evaluation: 02/23/18 Time of Evaluation: 13:51 - Subjective Subjective: CHIEF COMPLAINTS TODAY : AFEBRILE feeling better. JPRATT REMOVED PT TOLERATING DIET ROS. HEENT : N. Resp : No cough, wheezing ,pleuritic CP ,or hemoptysis Cardio : No anginal CP, PND, orthopnea, palpitation GI : POST OPERATIVE WOUND DRY, NO n/v ,diarrhea or GI bleeding . 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 Musculoskel : No joint swelling , Derm : No rash Psych : Normal affect. Ext : No swelling ,calf pain PE. Pt. is alert awake in no distress. V.S As noted in the chart Head ,ear nose,throat and eyes : Normal. Neck : Supple with normal carotids. Lungs: Clear air entry. Heart : S1 & S2 normal with S4. No murmur. Abd : SOFT .MILD PERIINCISIONAL PAIN , with normal bowel sounds. +J.FREDERICK REMOVED Neuro : Moves all ext. with no localized deficit. Ext : No edema with intact pulses.Non tender calves Derm : No rashes or decubitus ulcer. LABS/RADIOLOGY: REVIEWED BLOOD CULTURES-VETO DATE DRAINAGE ABD. FLUID -VE CT CHEST/ABDOMEN AND PELVIS WITH BY MOUTH AND iv CONTRAST-NOTED. small right apical pneumothorax,NO ACUTE ABDOMINAL FINDINGS, POSTOPERATIVE CHANGES. Objective - Vital Signs/Intake and Output Vital Signs (last 24 hours): Temp Pulse Resp BP Pulse Ox 98.3 F 95 H 20 129/89 96 02/23/18 07:46 02/23/18 07:46 02/23/18 07:46 02/23/18 07:46 02/23/18 07:46 Intake and Output: 02/23/18 02/23/18 06:59 18:59 Intake Total 600 Output Total 950 Balance -350 - Medications Medications: Current Medications Acetaminophen (Tylenol 325mg Tab) 650 mg PO Q6 PRN PRN Reason: Fever >100.4 F Last Admin: 02/20/18 21:40 Dose: 650 mg Enoxaparin Sodium (Lovenox) 40 mg SC DAILY [facility] Last Admin: 02/23/18 09:05 Dose: 40 mg Piperacillin Sod/Tazobactam Sod (Zosyn 3.375 Gm Iv Premix) 3.375 gm in 50 mls @ 100 mls/hr IVPB Q8H [facility] PRN Reason: Protocol Last Admin: 02/23/18 13:31 Dose: 100 mls/hr Potassium Chloride/Dextrose (Potassium Chl 20 Meq In D5w) 1,000 mls @ 50 mls/ hr IV .Q20H [facility] Last Admin: 02/23/18 05:15 Dose: Not Given Metoclopramide HCl (Reglan) 10 mg IVP Q8H [facility] Last Admin: 02/23/18 13:31 Dose: 10 mg Morphine Sulfate (Morphine Oral Soln) 20 mg PO Q4 PRN PRN Reason: Pain, moderate (4-7) Last Admin: 02/21/18 21:27 Dose: 20 mg Ondansetron HCl (Zofran Inj) 4 mg IVP Q6H [facility] Last Admin: 02/23/18 13:31 Dose: 4 mg Pantoprazole Sodium (Protonix Inj) 40 mg IVP DAILY [facility] Last Admin: 02/23/18 09:05 Dose: 40 mg Psyllium Hydrophilic Mucilloid (Hydrocil Instant) 1 pkt PO BID [facility] Last Admin: 02/23/18 09:05 Dose: 1 pkt Simethicone (Mylicon Chew Tab) 80 mg PO Q6H PRN PRN Reason: GI distress - Labs Labs: 02/22/18 09:30 02/22/18 09:30 Assessment and Plan (1) Fever Assessment & Plan: BLOOD CULTURES 2 SETS-VE ABDOMINAL FLUID CULTURE (RACHEL )- -VE PT FOR DC TODAY ON PO LEVAQUIN . PER SURGERY. Status: Acute (2) Leukocytosis Assessment & Plan: IMPROVED. Status: Acute (3) Status post Freeman fundoplication Status: Acute
--- NOTE | 2018-02-23 14:01 | CP.PCM.DIS ---
Provider - Provider Date of Admission: 02/18/18 14:19 Attending physician: Manpreet Hernandez MD Consults: Dr. Ovalle - Infectious Disease Time Spent in preparation of Discharge (in minutes): 30 Diagnosis - Discharge Diagnosis (1) Status post Freeman fundoplication Status: Acute Hospital Course - Lab Results Lab Results: Micro Results 02/21/18 00:51 Abdominal Fluid Gram Stain - Final 02/21/18 00:51 Abdominal Fluid Body Fluid Culture - Preliminary NO GROWTH AFTER 2 DAYS 02/20/18 19:00 Blood-Venous Blood Culture - Preliminary NO GROWTH AFTER 48 HOURS 02/20/18 19:30 Blood-Venous Blood Culture - Preliminary NO GROWTH AFTER 48 HOURS 02/20/18 20:42 Urine Urine Culture - Final No Growth (<1,000 CFU/ML) Most Recent Lab Values WBC 8.7 K/uL (4.8-10.8) 02/22/18 09:30 RBC 4.76 Mil/uL (4.40-5.90) 02/22/18 09:30 Hgb 13.9 g/dL (12.0-18.0) 02/22/18 09:30 Hct 41.4 % (35.0-51.0) 02/22/18 09:30 MCV 87.0 fL (80.0-94.0) 02/22/18 09:30 MCH 29.3 pg (27.0-31.0) 02/22/18 09:30 MCHC 33.7 g/dL (33.0-37.0) 02/22/18 09:30 RDW 14.7 % (11.5-14.5) H 02/22/18 09:30 Plt Count 232 K/uL (130-400) 02/22/18 09:30 MPV 8.4 fL (7.2-11.7) 02/22/18 09:30 Sodium 138 mmol/L (132-148) 02/22/18 09:30 Potassium 4.1 mmol/L (3.6-5.2) 02/22/18 09:30 Chloride 99 mmol/L (98-107) 02/22/18 09:30 Carbon Dioxide 29 mmol/L (22-30) 02/22/18 09:30 Anion Gap 14 (10-20) 02/22/18 09:30 BUN 10 mg/dL (9-20) 02/22/18 09:30 Creatinine 1.1 mg/dL (0.8-1.5) 02/22/18 09:30 Est GFR ( Amer) > 60 02/22/18 09:30 Est GFR (Non-Af Amer) > 60 02/22/18 09:30 Random Glucose 96 mg/dL (75-110) 02/22/18 09:30 Lactic Acid 1.2 mmol/L (0.7-2.1) 02/20/18 19:32 Calcium 9.5 mg/dl (8.6-10.4) 02/22/18 09:30 Phosphorus 2.8 mg/dL (2.5-4.5) 02/21/18 08:02 Magnesium 2.0 mg/dL (1.6-2.3) 02/21/18 08:02 Urine Color Yellow (YELLOW) 02/20/18 19:32 Urine Clarity Clear (Clear) 02/20/18 19:32 Urine pH 7.0 (5.0-8.0) 02/20/18 19:32 Ur Specific Spencer 1.008 (1.003-1.030) 02/20/18 19:32 Urine Protein 1+ mg/dL (NEGATIVE) H 02/20/18 19:32 Urine Glucose (UA) Normal mg/dL (Normal) 02/20/18 19:32 Urine Ketones Negative mg/dL (NEGATIVE) 02/20/18 19:32 Urine Blood 1+ (NEGATIVE) H 02/20/18 19:32 Urine Nitrate Negative (NEGATIVE) 02/20/18 19:32 Urine Bilirubin Negative (NEGATIVE) 02/20/18 19:32 Urine Urobilinogen Normal mg/dL (0.2-1.0) 02/20/18 19:32 Ur Leukocyte Esterase Neg Chio/uL (Negative) 02/20/18 19:32 Urine WBC (Auto) 1 /hpf (0-5) 02/20/18 19:32 Urine RBC (Auto) 1 /hpf (0-3) 02/20/18 19:32 - Hospital Course Hospital Course: 57M w. hx of of hiatal hernia presented via SDS for an elective freeman fundoplication. During post-op course, pt had intermittent fevers likely pulmonary in origin. Cxs have shown NGTD. Pt is currently afebrile with no complaints. Tolerating diet, no N/V/D. Discharge Exam - Head Exam Head Exam: ATRAUMATIC, NORMAL INSPECTION, NORMOCEPHALIC - Eye Exam Eye Exam: EOMI - ENT Exam ENT Exam: Mucous Membranes Moist - Neck Exam Neck exam: Full Rom - Respiratory Exam Respiratory Exam: NORMAL BREATHING PATTERN. absent: Accessory Muscle Use, Respiratory Distress - GI/Abdominal Exam GI & Abdominal Exam: Soft. absent: Distended, Firm, Guarding, Rebound, Rigid Additional comments: incisions C/D/I - Neurological Exam Neurological exam: Alert, Oriented x3 - Skin Skin Exam: Dry, Warm Discharge Plan - Discharge Medications Prescriptions: Levofloxacin [Levaquin] 750 mg PO DAILY #7 tablet - Follow Up Plan Condition: GOOD Disposition: HOME/ ROUTINE Patient education suggested?: Yes Instructions: Hiatal Hernia, Hernia Repair (DC), Fundoplication, Laparoscopic Surgery Additional Instructions: Follow up with Dr. Hernandez in 1-2 weeks Pureed diet for 2 weeks No lifting >15-20lbs for 4 weeks IS 10x/hr Rx as instructed Referrals: Manpreet Hernandez MD [Staff Provider] -
[2018-02-23 16:00] VITALS: BP 154/93; PULSE 82; TEMP 98.1; O2SAT 95
== END 2018-02-23 17:11 | disposition home or self-care (01) | DRG 327 ==
LOC: C.SDS 06:09 → C.9E 14:19 → C.9S 14:25 → C.5S 17:29
PROVIDERS: ADMIT Surgery Surgical Critical Care; ATTEND Surgery Surgical Critical Care
PROC: 0BUT4JZ Supplement Diaphragm with Synthetic Substitute, Percutaneous Endoscopic Approach (ICD-10-PCS; 2018-02-18)
PROC: 8E0W4CZ Robotic Assisted Procedure of Trunk Region, Percutaneous Endoscopic Approach (ICD-10-PCS; 2018-02-18)
PROC: 0DJ08ZZ Inspection of Upper Intestinal Tract, Via Natural or Artificial Opening Endoscopic (ICD-10-PCS; 2018-02-18)
PROC: 0W9F30Z Drainage of Abdominal Wall with Drainage Device, Percutaneous Approach (ICD-10-PCS; 2018-02-18)
PROC: 0DV44ZZ Restriction of Esophagogastric Junction, Percutaneous Endoscopic Approach (ICD-10-PCS; principal; 2018-02-18 07:30)
DX: K44.9 Diaphragmatic hernia without obstruction or gangrene (principal); J90 Pleural effusion, not elsewhere classified; K21.9 Gastro-esophageal reflux disease without esophagitis; R50.82 Postprocedural fever; R91.8 Other nonspecific abnormal finding of lung field